=== PATIENT | male | born 1990 | race Hispanic/Latino ===

== ENCOUNTER 2020-12-28 19:07 | Emergency (ER) | payer SELFPAY ==
--- NOTE | ~2020-12-28 | XR_ITS ---
[id number] DATE: 12/28/2020 19:45 INDICATION: Right lower rib pain after lifting TECHNIQUE: PA chest. 3 views of the right ribs. COMPARISON: None FINDINGS: No right rib fracture detected. There is mild right basilar atelectasis. No pleural effusion or pneumothorax. IMPRESSION: No evidence of right rib fracture Reviewed, dictated and finalized at [facility]. Reviewed, dictated and finalized at [facility].
[2020-12-28 19:12] VITALS: BP 156/59; PULSE 82; RESP 18; TEMP 37.2; O2SAT 95
[2020-12-28] MEDS: HYDROcodone/acetaminophen (*CRX) 5-325 MG TABLET 1 TAB PO (20:06)
--- NOTE | 2020-12-28 20:34 | ED.GENADULT ---
HPI - General Adult General Chief complaint: Back Pain/Injury Stated complaint: right flank pain Time Seen by Provider: 12/28/20 19:20 Source: patient Mode of arrival: ambulatory Limitations: no limitations History of Present Illness HPI narrative: Patient presents with chief complaint of right rib pain that began after working on his brakes on Tuesday and feeling a pop in the location. Patient reports his pain worsens when he takes deep breaths, coughs or labs. Patient states that he did not feel the pain initially but it has gradually increased over time. He denies pain to his back. He denies fever, chills, nausea, vomiting, diarrhea, shortness of breath or chest pain. Related Data Allergies Allergy/AdvReac Type Severity Reaction Status Date / Time No Known Allergies Allergy Verified 12/28/20 19:36 Review of Systems Review of Systems: CONSTITUTIONAL: Denies fever, chills, or sweats. EYES: Denies visual changes, redness, or discharge. ENT: Denies rhinorrhea, congestion, sore throat, or otalgia. CARDIOVASCULAR: Denies chest pain, palpitations, or edema. RESPIRATORY: Denies cough or dyspnea. GASTROINTESTINAL: Denies abdominal pain, nausea, vomiting, or diarrhea. GENITOURINARY: Denies dysuria or hematuria. SKIN: Denies rash or itching. MUSCULOSKELETAL: Reports right rib pain denies back pain, joint pain, or myalgia. NEUROLOGIC: Denies headache, numbness, dizziness, or weakness. PSYCHIATRIC: Denies anxiety or depression. Exam Narrative: GENERAL: Well-appearing, well-nourished, and in no acute distress. HEAD: Normocephalic, atraumatic. EYES: PERRLA and EOMI. NECK: Supple. No adenopathy or masses. Range of motion intact. CHEST: Clear to auscultation. No respiratory distress. No wheezes rales or rhonchi. Tenderness to palpation of lower right ribs. No tachypnea or distress when breathing. BACK: No tenderness to palpation. HEART: Regular rate and rhythm. No murmur heard. Normal peripheral pulses. EXTREMITIES: Normal range of motion. No edema. SKIN: Warm, dry, no rash. NEURO: No focal deficits. Alert and oriented x3. PSYCH: Normal mood and affect. Course Vital Signs Vital signs: Vital Signs Temperature 98.9 F 12/28/20 19:12 Pulse Rate 82 12/28/20 19:12 Respiratory Rate 18 12/28/20 19:12 Blood Pressure 156/59 H 12/28/20 19:12 Pulse Oximetry 95 12/28/20 19:12 Temperature 98.9 F 12/28/20 19:12 Pulse Rate 82 12/28/20 19:12 Respiratory Rate 18 12/28/20 19:12 Blood Pressure 156/59 H 12/28/20 19:12 Pulse Oximetry 95 12/28/20 19:12 Medical Decision Making MDM Narrative Medical decision making narrative: Patient does not have any rib fracture. Patient treated as rib sprain. Patient given naproxen and cyclobenzaprine. Patient directed to follow-up with his primary care if symptoms persist. Instructed to avoid activities that cause irritation to the ribs. Vital Signs Vital Signs: Vital Signs Temperature 98.9 F 12/28/20 19:12 Pulse Rate 82 12/28/20 19:12 Respiratory Rate 18 12/28/20 19:12 Blood Pressure 156/59 H 12/28/20 19:12 Pulse Oximetry 95 12/28/20 19:12 Temperature 98.9 F 12/28/20 19:12 Pulse Rate 82 12/28/20 19:12 Respiratory Rate 18 12/28/20 19:12 Blood Pressure 156/59 H 12/28/20 19:12 Pulse Oximetry 95 12/28/20 19:12 Imaging Data Radiologist's impression: ITS Impressions Ribs w/Chest X-Ray 12/28/20 20:24 IMPRESSION: No evidence of right rib fracture Discharge Plan Discharge Clinical Impression: Rib sprain Qualifiers: Encounter type: initial encounter Qualified Code(s): S23.41XA - Sprain of ribs, initial encounter Patient Disposition: Home, Self-Care Condition: Improved Instructions: Antibiotic Form, Rib Contusion (ED) Additional Instructions: Take naproxen and cyclobenzaprine as directed. Do not take cyclobenzaprine if you be driving operate heavy machinery as it can cause drowsiness. Do not ta
[2020-12-28 21:30] VITALS: BP 125/85; PULSE 64; RESP 16; TEMP 37.2; O2SAT 98
== END 2020-12-28 21:30 | disposition home or self-care (01) ==
PROVIDERS: Emergency Provider Emergency Medicine
DX: S23.41XA Sprain of ribs, initial encounter (principal); X50.9XXA Other and unspecified overexertion or strenuous movements or postures, initial encounter
CPT/HCPCS: 71101; 99283; A9270